=== PATIENT | female | born 1990 | race Two or more races ===

== ENCOUNTER 2024-02-29 18:33 | Emergency (ER) | payer MEDICAID, SELFPAY ==
[2024-02-29 18:46] VITALS: BP 125/67; PULSE 87; RESP 18; TEMP 36.9; O2SAT 99; BMI 16.9
--- NOTE | 2024-02-29 19:25 | XR_ITS ---
Examination: Forearm, left, 2 views. Technique: Forearm, AP, lateral 2 views Date and time of exam: February 29, 2024 1933 hrs. Indications: Left forearm pain beginning 2 weeks ago Findings: No fracture or dislocation No cortical bone destruction No foreign body Impression: No cortical bone destruction or foreign body
--- NOTE | 2024-02-29 19:30 | PD.EDUPEX ---
Upper Extremity Injury RME/HPI General Chief Complaint: Extremity Problem,Nontraumatic Stated Complaint: LEFT ARM PAIN FROM WORK; SEEN ER 02/14 FOR SAME Time Seen by Provider: 02/29/24 19:07 Arrival date/time: 02/29/24 18:33 33F with no significant PMH presents to ED with 2 weeks of L forearm pain w/of fall/trauma. Patient works in the warehouse. Patient went to another ER during initial pain with recommendations of conservative treatment, which patient has done. Patient denies arm swelling and SOB. Limitations: no limitations Related Data Home Medications ?Medication ?Instructions ?Recorded ?Confirmed ibuprofen 800 mg tablet 800 mg PO TID 05/29/17 05/29/17 Previous Rx's ?Medication ?Instructions ?Recorded ibuprofen 400 mg tablet 400 mg PO TID PRN fever or pain 05/29/17 #30 tabs penicillin V potassium 500 mg 500 mg PO TID Dental abscess #21 05/29/17 tablet tabs Allergies Allergy/AdvReac Type Severity Reaction Status Date / Time No Known Allergies Allergy Verified 02/29/24 18:36 Review of Systems Review of Systems Systems Reviewed: All systems reviewed, normal except as documented Constitutional Constitutional: Reports system reviewed and no additional complaints, except as documented, Denies fever(s) and Denies headache(s) ENT Ears, Nose, Mouth, and Throat: Denies disequilibrium and Denies headache(s) Cardiovascular Cardiovascular: Reports system reviewed and no additional complaints, except as documented, Denies chest pain and Denies dyspnea Respiratory Respiratory: Reports system reviewed and no additional complaints, except as documented, Denies cough and Denies dyspnea Gastrointestinal Gastrointestinal: Reports system reviewed and no additional complaints, except as documented, Denies abdominal pain, Denies nausea and Denies vomiting Musculoskeletal Musculoskeletal: Reports as per HPI and Reports arthralgias Neurologic Neurologic: Reports system reviewed and no additional complaints, except as documented, Denies confusion, Denies disequilibrium and Denies headache(s) Psychiatric Psychiatric: Denies confusion Past Medical History Past Medical History MUSCULOSKELETAL: Positive Musculoskeletal Disorders (Right shoulder pain) Social History SMOKING STATUS: Never smoker ED Exam General Limitations: Present no limitations General appearance: Present alert and in no apparent distress Head Head exam: Present atraumatic Eye Eye exam: Present normal appearance, PERRL and EOMI ENT ENT exam: Present normal exam, normal oropharynx and mucous membranes moist Neck Neck exam: Present normal inspection, full ROM and trachea midline Chest Chest inspection: Present normal inspection and symmetric chest wall rise Respiratory Respiratory exam: Present normal lung sounds bilaterally Cardiovascular Cardiovascular exam: Present regular rate, normal rhythm and normal heart sounds Abdominal Exam Abdominal exam: Present soft and normal bowel sounds Extremities Exam Extremities exam: Present full ROM Expanded Upper Extremity Exam Forearm/Wrist exam: Present full ROM (R) and tenderness Back Exam Back exam: Present normal inspection and full ROM Neurological Exam Neurological exam: Present alert, oriented X3 and CN II-XII intact Psychiatric Psychiatric exam: Present normal affect and normal mood Skin Skin exam: Present warm, dry, intact and normal color Course Quality Measures none Orders Category Date Time Status XR forearm LT 2V Stat Exams 02/29/24 19:25 Completed Naproxen [Naprosyn] Med 02/29/24 19:29 Discontinued 500 mg PO X1 ONE Vital Signs Vital signs: Vital Signs Temperature 98.5 F 02/29/24 18:46 Pulse Rate 87 02/29/24 18:46 Respiratory Rate 18 02/29/24 18:46 Blood Pressure 125/67 02/29/24 18:46 Pulse Oximetry (%) 99 02/29/24 18:46 Oxygen Delivery Method Room Air 02/29/24 18:46 O2 at 99% on RA and WNLs Extremity Injury MDM Narrative MDM Narrative:: 33F with no significant PMH presents to ED with 2 weeks of L forearm pain w/of fall/trauma. Patient works in the warehouse. Patient went to another ER during initial pain with recommendations of conservative treatment, which patient has done. Patient denies arm swelling and SOB. Physical exam reveals L forearm tenderness, but no obvious swelling, redness, or issues with ROM. Paitent is afebrile, calm, and alert. XR normal. 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 Patient data External records reviewed:: [facility] previous records Clinical information provided by:: patient Social determinants that could affect healthcare access:: none Patient has the following chronic illnesses:: none How is presenting disease/condition affected by chronic disease/condition?: no chronic disease Evaluation data The following diagnostics were reviewed and interpreted by me:: radiology exam(s) Lab and/or radiology exams considered but not ordered:: ordered Interpretation Summary: above Medications / Prescriptions Medications or Prescriptions considered but not ordered:: ordered Medication administrations:: Medication Administration History Discontinued Medications Naproxen (Naproxen 250 Mg Tablet) 500 mg PO X1 ONE Stop: 02/29/24 19:30 Last Admin: 02/29/24 20:27 Dose: 500 mg Documented By: KF above Consultations Consultation(s) initiated? (list below): No Diagnosis Upper Extremity Injury Differential Diagnosis: sprain and strain of wrist, fracture of wrist, finger sprain, dislocation of finger, Colles' fracture, fracture of hand and other (forearm pain) Most likely diagnosis given after review of the tests above:: forearm pain Admission Indicated Admission indicated?: not indicated Admission Request Was there a request for admission?: No Disposition Plan Disposition Plan: Discharge Discharge Attestation Discharge Attestation: The patient and all family members were given an opportunity to ask questions and understood the discharge instructions. Discharge instructions specifically effects, indications for sooner follow up or return to the emergency department, and the expected course of current diagnosis. Patient condition: Stable Discharge Plan Plan Patient Disposition: HOME (Self Care) Disposition Comment: Stable Prescriptions/Referrals Prescriptions/Med Rec: No Action ibuprofen 800 mg Tablet 800 mg PO TID penicillin V potassium 500 mg tablet 500 mg PO TID Qty: 21 0RF ibuprofen 400 mg tablet 400 mg PO TID PRN (Reason: fever or pain) Qty: 30 0RF Referrals: No Primary/Family,Physician [Primary Care Provider] - In 1 week Problem List Clinical Impression: Forearm pain Patient/Caregiver Discharge Instructions Education Materials: ED Myalgias, ED RICE Additional Instructions: Please follow-up with PCP within 24-48 hours and return immediately if symptoms worsen. If problem persists, recommend outpatient PT and/or MRI follow-up. In the meantime, rest, use ice/heat, and/or compression. Print Language: Azeri Stand Alone Forms: Work/School Release, Patient Portal Info Letter PA/INSIDE SALES RECRUITER Supervising Physician PA/INSIDE SALES RECRUITER Supervising Physician: Dr. Aguirre
[2024-02-29] MEDS: NAPROXEN 250 MG TABLET 500 MG PO (20:27)
== END 2024-02-29 22:00 | disposition home or self-care (01) ==
PROVIDERS: Emergency Provider Emergency Medicine
DX: M79.602 Pain in left arm (principal)
CPT/HCPCS: 73090; 99283; A9270